=== PATIENT | female | born 1970 | race Two or more races ===

== ENCOUNTER 2024-07-13 08:46 | Emergency (ER) | payer BC, OTHER ==
[~2024-07-13] VITALS: Ht 162.6 cm; Wt 81.6 kg
[2024-07-13 09:02] VITALS: BP 145/73; TEMP 98.2
[2024-07-13 09:15] VITALS: O2SAT 99
== END 2024-07-13 09:16 | disposition home or self-care (01) ==
LOC: ER 09:03
DX: B34.9 Viral infection, unspecified (principal); J34.89 Other specified disorders of nose and nasal sinuses; R09.81 Nasal congestion; E78.5 Hyperlipidemia, unspecified; Z20.822 Contact with and (suspected) exposure to COVID-19